=== PATIENT | male | born 1990 | race Two or more races ===

== ENCOUNTER 2019-12-21 17:33 | Inpatient (IN) | payer MEDICAID ==
[~2019-12-21] VITALS: Ht 172.7 cm; Wt 66.8 kg
[2019-12-21] MEDS ORDERED: ARIP15TA2 PO (22:40)
[2019-12-21] MEDS ORDERED: HALOPERIDOL 5 MG TABLET PO PRN (23:00)
[2019-12-21] MEDS ORDERED: ZOLPIDEM TARTRATE 10 MG TABLET PO PRN (23:00)
[2019-12-21] MEDS ORDERED: INFLUENZA VIRUS VACCINE QVS 2019-20 (3YR+)/PF 60 MCG/0.5 ML SYRINGE IM ONE (23:45)
[2019-12-22 01:10] VITALS: BP 135/73
[2019-12-22 07:40] LABS: EOSINOPHILS % (AUTO) 5.3 % (1.0-6.0); HEMATOCRIT 37.2 % (41-53); HEMOGLOBIN 12.1 g/dL (13.5-17.5); LYMPHOCYTES # (AUTO) 1.7 K/uL (1.0-4.8); LYMPHOCYTES % (AUTO) 25.9 % (22.0-44.0); MEAN CORPUSCULAR HEMOGLOBIN 24.3 pg (26.0-34.0); MEAN CORPUSCULAR HGB CONC 32.4 G/dL (31.0-37.0); MEAN CORPUSCULAR VOLUME 75 fL (80-100); MONOCYTES # (AUTO) 0.4 K/uL (0.1-1.0); MONOCYTES % (AUTO) 6.8 % (2.0-9.0); PLATELET COUNT (AUTO) 219 K/uL (150-450); RED BLOOD CELL COUNT(AUTO) 4.95 MIL/uL (4.50-5.90)
[2019-12-22 08:11] LABS: HEMOGLOBIN A1C 5.2 % (3.8-5.6)
[2019-12-22 08:14] LABS: ALANINE AMINOTRANSFERASE 36 U/L (12-78); ALBUMIN 3.8 g/dL (3.4-5.0); ALKALINE PHOSPHATASE 64 U/L (46-116); ANION GAP 6 mmol/L (8-16); ASPARTATE AMINOTRANSFERASE 14 U/L (15-37); BILIRUBIN,TOTAL 0.2 mg/dL (0.1-1.0); CALCIUM, TOTAL 9.1 mg/dL (8.8-10.5); CARBON DIOXIDE 29 mmol/L (22-29); CHLORIDE 103 mmol/L (98-107); CHOL/HDL RATIO 2.1 (4.2-7.3); CHOLESTEROL 154 mg/dL (131-200); CREATININE 0.78 mg/dL (0.60-1.30); FREE T4 (FREE THYROXINE) 1.38 ng/dL (0.76-1.46); GLOMERULAR FILTR. RATE CALC > 60 mL/min (>60); GLUCOSE,RANDOM 77 mg/dL (70-110); HDL CHOLESTEROL 72 mg/dL (40-60); LDL CHOL (CALC.) 37 mg/dL (0-130); SODIUM SERUM 138 mmol/L (136-145); THYROID STIMULATING HORMONE 0.67 uIU/mL (0.36-3.74); TOTAL PROTEIN, SERUM 7.3 g/dL (6.4-8.2); TRIGLYCERIDES 226 mg/dL (15-150); UREA NITROGEN, BLOOD 19 mg/dL (7-18)
[2019-12-22 09:45] VITALS: BP 128/97
[2019-12-22] MEDS: ARIPiprazole 15 MG TABLET PO SCH (11:23)
[2019-12-22] MEDS: LORazepam 2 MG TABLET PO PRN (16:26)
[2019-12-22 16:30] VITALS: BP 123/78
[2019-12-22 18:03] VITALS: BP 123/78
[2019-12-22 20:40] VITALS: BP 123/78
[2019-12-23 05:55] VITALS: BP 125/73
[2019-12-23 08:07] VITALS: BP 126/73
[2019-12-23] MEDS: ARIPiprazole 15 MG TABLET PO SCH (08:54)
[2019-12-23] MEDS: LORazepam 2 MG TABLET PO PRN (15:53)
[2019-12-23 17:09] VITALS: BP 135/88
[2019-12-24 05:48] VITALS: BP 125/86
[2019-12-24] MEDS: ARIPiprazole 15 MG TABLET PO SCH (08:16)
[2019-12-24 08:19] VITALS: BP 122/86
[2019-12-24] MEDS ORDERED: ARIP15TA2 PO (09:19)
== END 2019-12-24 14:51 | disposition home or self-care (01) | DRG 750 ==
LOC: B3A 23:02
PROVIDERS: ADMIT Psychiatry & Neurology Child & Adolescent Psychiatry; ATTEND Psychiatry & Neurology Child & Adolescent Psychiatry
DX: F25.0 Schizoaffective disorder, bipolar type (principal); R45.851 Suicidal ideations; D64.9 Anemia, unspecified; E78.5 Hyperlipidemia, unspecified; F19.10 Other psychoactive substance abuse, uncomplicated; F10.10 Alcohol abuse, uncomplicated; R00.0 Tachycardia, unspecified; Z28.21 Immunization not carried out because of patient refusal
CPT/HCPCS: 83036; 84439; 84443